=== PATIENT | male | born 1975 | race Caucasian/White ===

== ENCOUNTER 2022-04-23 14:13 | Emergency (ER) | payer OTHER ==
[2022-04-23] MEDS ORDERED: CLEOCIN 150 MG CAPSULE PO ONE (15:02)
[2022-04-23] MEDS ORDERED: CLEOCIN 150 MG CAPSULE ONE (15:06)
--- NOTE | 2022-04-23 15:09 | ERPHSYRPT ---
- History of Present Illness Time Seen by Provider: 04/23/22 14:15 Source: patient Exam Limitations: no limitations Patient Subjective Stated Complaint: Pt woke up on with his right eye swollen shut and the side of his face was swollen, his upper eye lid appears to have a bite on it and is swollen, states that he got a lot of puss out of it yesterday when he got out of the shower Triage Nursing Assessment: Pt brought to the ER by his , tachycardic, rates pain as 2/10, right eye lid swollen and red, no other problems at this time Physician History: 46 years old male up-to-date with immunizations presented in the ER with chief complaint of right upper lid swelling upon waking up from 5 days ago with right eyes swollen shut, has been taking [id number] pain medication and leftover amoxicillin along with warm compresses and it started to improve. Yesterday while taking shower reports there was discharge of green pus. Swelling is still there and no more draining currently. Denies any difficulty movements of eyeball. No redness of eyeball itself without any photophobia or visual disturbance. Patient wants antibiotics. Timing/Duration: day(s) (5), constant, sudden, improved Location: right eye Severity: moderate Apparent Injury: no Associated Symptoms: pain, burning, eyelid swelling, No decreased vision Visual Assistive Devices: Glasses Allergies/Adverse Reactions: cyclobenzaprine HCl [From Flexeril] Allergy (Verified 04/23/22 14:55) naproxen Allergy (Verified 04/23/22 14:55) Home Medications: modafiniL [Provigil] 200 mg PO DAILY 04/23/22 [History] Hx Tetanus, Diphtheria Vaccination/Date Given: Yes (up to date) Hx Influenza Vaccination/Date Given: No Hx Pneumococcal Vaccination/Date Given: No Travel Risk - International Travel Have you traveled outside of the country in past 3 weeks: No - Coronavirus Screening Are you exhibiting any of the following symptoms?: No Close contact with a COVID-19 positive Pt in past 14-21 Days: No - Vaccine Status Have you recieved a Covid-19 vaccination: No - Review of Systems Constitutional: No Symptoms Eyes: Other (Leg swelling) Ears, Nose, & Throat: No Symptoms Respiratory: No Symptoms Cardiac: No Symptoms Abdominal/Gastrointestinal: No Symptoms Musculoskeletal: No Symptoms Skin: Induration Neurological: No Symptoms Endocrine: No Symptoms Hematologic/Lymphatic: No Symptoms - Past Medical History Pertinent Past Medical History: Yes Neurological History: Peripheral Neuropathy Other Medical History: . - Past Surgical History Past Surgical History: Yes Other Surgical History: carpal tunnel surgery - Social History Smoking Status: Current every day smoker How long have you smoked: 20 Exposure to second hand smoke: Yes Drug Use: none Patient Lives Alone: No - Nursing Vital Signs Nursing Vital Signs: Initial Vital Signs Temperature 97.6 F 04/23/22 14:47 Pulse Rate 101 H 04/23/22 14:47 Blood Pressure 133/92 04/23/22 14:47 O2 Sat by Pulse Oximetry 97 04/23/22 14:47 Pain Scale Pain Intensity 2 - Physical Exam General Appearance: no apparent distress Vision Acuity Degree Evaluation Phase: Corrected Vision Acuity Right Eye: 20/30 Vision Acuity Left Eye: 20/20 Eye Exam: right eye: eyelid inflammation (1.5 x 1.5 cm swelling upper lid, firm consistency, warm with intact range of motion of eyeball), left eye: normal in spection, bilateral eye: PERRL, EOMI Ears, Nose, Throat Exam: normal ENT inspection, TMs normal, pharynx normal Neck Exam: normal inspection, supple, full range of motion Respiratory Exam: normal breath sounds, chest tenderness Cardiovascular Exam: regular rate/rhythm, normal heart sounds Neurologic: alert, oriented x 3, chemical dependency nurse II-XII nml as tested Skin Exam: normal color SpO2 Interpretation: normal SpO2: 97 O2 Delivery: Room Air - Progress Progress: unchanged Progress Note: 04/23/22 15:08 I have offered him needle aspiration after local anesthesia but he totally refused and wants nothing but antibiotic prescription. This could be insect bite versus external stye. Started on clindamycin, recommended continue with Tylenol ibuprofen. Patient has no restricted range of motion of eyeball or any acute pathology in the eyeball itself. Recommended outpatient ophthalmology/primary care follow-up. Discussed signs symptoms of worsening needing return to ER which he seems understanding. Counseled pt/family regarding: diagnosis, need for follow-up - Departure Departure Disposition: Home Clinical Impression: Eyelid cellulitis Condition: Stable Critical Care Time: No Referrals: EL DHILLON NP [Primary Care Provider] - Follow up/PCP as directed (1-2 days for reevaluation) SHIVANI BARRIOS MD [CONSULTING PHYSICIAN] - Follow up/PCP as directed (Call tomorrow for appointment for reevaluation) Instructions: Trevon (SUSANA), Skin Abscess Additional Instructions: Apply warm compresses. Take Tylenol/ibuprofen as needed for pain. Follow-up with primary care/ophthalmology for reevaluation. Return to ER for worsening swelling, visual disturbance, difficulty movements of eyeball itself, fever chills etc. Prescriptions: Ibuprofen 600 mg PO Q6HPRN PRN 10 Days #20 tablet PRN Reason: Pain clindamycin HCL [Clindamycin HCl] 300 mg PO QID 7 Days #28 cap
[2022-04-23 15:36] VITALS: BP 132/95; PULSE 84; O2SAT 96
== END 2022-04-23 15:36 | disposition home or self-care (01) ==
LOC: ED 14:13
DX: H00.031 Abscess of right upper eyelid (principal); Z72.0 Tobacco use; Z28.310 Unvaccinated for COVID-19
CPT/HCPCS: 99281; A9270-GY

== ENCOUNTER 2024-06-12 17:19 | Observation (INO) | payer OTHER ==
--- NOTE | 2024-06-12 17:21 | ERPHSYRPT ---
- History of Present Illness Time Seen by Provider: 06/12/24 17:21 Historian: patient, family Exam Limitations: no limitations Physician History: This is a very active 48-year-old white male patient of nurse jason Valencia who has noticed generalized abdominal pain and distention over the last 2 months. Patient did not seek any evaluation until yesterday when he was seen at [facility]. A CT scan of the abdomen pelvis was performed. He does not have her know the results of that study. He also saw his primary care provider, nurse jason Valencia today. She sent him over to the emergency department for further evaluation management. Associated symptoms include abdominal pain, distention, diarrhea (black) and vomiting (black). He has never had an abdominal surgery in the past. He does state he has had a colonoscopy in the distant past. He has a history of peripheral neuropathy. He has no bleeding or clotting disorders. He does have a history of a small bowel obstruction in the past that was treated nonoperatively. Timing/Duration: worse (Symptoms worsening), other (Abdominal pain, generalized for 2 months) Activities at Onset: none Quality: pressure, tightness Abdominal Pain Onset Location: generalized abdomen Pain Radiation: no radiation Severity of Pain-Max: moderate Severity of Pain-Current: moderate Associated Symptoms: loss of appetite, vomiting, other (Abdominal distention), No chest pain, No fever/chills, No shortness of breath Previous symptoms: no prior history, no recent treatment Allergies/Adverse Reactions: cyclobenzaprine HCl [From Flexeril] Allergy (Verified 06/12/24 17:44) naproxen Allergy (Verified 06/12/24 17:44) Home Medications: modafiniL [Provigil] 200 mg PO DAILY 04/23/22 [History] Hx Tetanus, Diphtheria Vaccination/Date Given: Yes (up to date) Hx Influenza Vaccination/Date Given: No Hx Pneumococcal Vaccination/Date Given: No Travel Risk - International Travel Have you traveled outside of the country in past 3 weeks: No - Emerging Infectious Disease Are you exhibiting symptoms associated with any current EIDs: No - Review of Systems Constitutional: No Symptoms Eyes: No Symptoms Ears, Nose, & Throat: No Symptoms Respiratory: No Symptoms Cardiac: No Symptoms Abdominal/Gastrointestinal: Abdominal Pain (And distention), Nausea, Vomiting, Diarrhea, Appetite Changes Genitourinary Symptoms: No Symptoms Musculoskeletal: No Symptoms Skin: No Symptoms Neurological: No Symptoms Psychological: No Symptoms Endocrine: No Symptoms Hematologic/Lymphatic: No Symptoms Immunological/Allergic: No Symptoms All Other Systems: Reviewed and Negative - Past Medical History Pertinent Past Medical History: Yes Neurological History: Peripheral Neuropathy Other Medical History: . - Past Surgical History Past Surgical History: Yes Other Surgical History: carpal tunnel surgery - Social History Smoking Status: Current every day smoker How long have you smoked: 20 Exposure to second hand smoke: Yes Drug Use: none Patient Lives Alone: No - Nursing Vital Signs Nursing Vital Signs: Initial Vital Signs Blood Pressure 130/88 06/12/24 17:30 O2 Sat by Pulse Oximetry 95 06/12/24 17:30 Pain Scale Pain Intensity 4 - Physical Exam General Appearance: no apparent distress, alert, anxiety, thin Eye Exam: PERRL/EOMI, eyes nml inspection Ears, Nose, Throat Exam: normal ENT inspection, moist mucous membranes Neck Exam: normal inspection, non-tender, supple, full range of motion Respiratory Exam: normal breath sounds, lungs clear, airway intact, No chest tenderness, No respiratory distress Cardiovascular Exam: regular rate/rhythm, normal heart sounds, normal peripheral pulses Gastrointestinal/Abdomen Exam: soft, normal bowel sounds, tenderness (Mild diff use with palpation), distention (Diffuse), guarding (Mild diffuse with palpation), No rebound Rectal Exam: not done Back Exam: normal inspection, normal range of motion, No CVA tenderness, No vertebral tenderness Extremity Exam: normal inspection, normal range of motion, pelvis stable Neurologic Exam: alert, oriented x 3, cooperative, in store marketing associate II-XII nml as tested, normal mood/affect, nml cerebellar function, nml station & gait, sensation nml Skin Exam: normal color, warm, dry Lymphatic Exam: No adenopathy SpO2 Interpretation: normal O2 Delivery: Room Air - Course Nursing assessment & vital signs reviewed: Yes Ordered Tests: Active Orders 24 hr Category Date Time Status IV Insertion STAT Care 06/12/24 17:52 Active NGT [Gastric Tube Insertion] STAT Care 06/12/24 20:51 Active ABDOMEN AND PELVIS W/0 CONTRAS [CT] Stat Exams 06/12/24 17:53 Completed AMYLASE Stat Lab 06/12/24 18:20 Completed CBC W DIFF Stat Lab 06/12/24 18:20 Completed CMP Stat Lab 06/12/24 18:20 Completed LIPASE Stat Lab 06/12/24 18:20 Completed Lactic Acid Stat Lab 06/12/24 17:58 Completed UA W/RFX UR CULTURE Stat Lab 06/12/24 18:00 Completed Medication Summary Discontinued Medications Generic Name Dose Route Start Last Admin Trade Name Freq PRN Reason Stop Dose Admin Hydromorphone HCl 1 mg 06/12/24 18:07 06/12/24 18:17 Hydromorphone 1 Mg/1ml Inj IV 06/12/24 18:08 1 mg STAT ONE Administration Hydromorphone HCl Confirm 06/12/24 18:14 Hydromorphone 1 Mg/1ml Inj Administered 06/12/24 18:15 Dose 1 mg .ROUTE .STK-MED ONE Sodium Chloride 500 mls @ 500 mls/hr 06/12/24 18:07 06/12/24 18:17 Sodium Chloride 0.9% 500 Ml IV 06/12/24 19:06 500 mls/hr .Q1H ONE Administration Sodium Chloride Confirm 06/12/24 18:14 Sodium Chloride 0.9% 500 Ml Administered 06/12/24 18:15 Dose 500 mls @ ud IV .STK-MED ONE Ondansetron HCl 4 mg 06/12/24 18:07 06/12/24 18:17 Ondansetron Hcl 4 Mg/2 Ml Vial IV 06/12/24 18:08 4 mg STAT ONE Administration Ondansetron HCl Confirm 06/12/24 18:14 Ondansetron Hcl 4 Mg/2 Ml Vial Administered 06/12/24 18:15 Dose 4 mg .ROUTE .STK-MED ONE Lab/Rad Data: Laboratory Result Diagrams 06/12/24 18:20 06/12/24 18:20 Laboratory Results 06/12/24 06/12/24 06/12/24 Range/Units 18:20 18:20 18:00 WBC 6.2 (4.23-9.07) x10^3/uL RBC 4.53 L (4.63-6.08) x10^6/uL Hgb 13.1 L (13.7-17.5) g/dL Hct 38.9 L (40.1-51.0) % MCV 85.9 (79.0-92.2) fL MCH 28.9 (25.7-32.2) pg MCHC 33.7 (32.3-36.5) g/dL RDW 13.6 (11.6-14.4) % Plt Count 253 (163-337) x10^3/uL MPV 10.4 (9.4-12.4) fL Gran % 67.0 (34.0-67.9) % Immature Gran % (Auto) 0.3 (0.001-0.429) % Nucleat RBC Rel Count 0.0 (0.00-0.2) % Eos # (Auto) 0.12 (0.04-0.54) x10^3/uL Immature Gran # (Auto) 0.02 (0.001-0.031) x10^3u/L Absolute Lymphs (auto) 1.47 (1.32-3.57) x10^3/uL Absolute Monos (auto) 0.41 (0.30-0.82) x10^3/uL Absolute Nucleated RBC 0.00 (0.00-0.012) x10^3u/L Lymphocytes % 23.7 (21.8-53.1) % Monocytes % 6.6 (5.3-12.2) % Eosinophils % 1.9 (0.8-7.0) % Basophils % 0.5 (0.2-1.2) % Absolute Granulocytes 4.15 (1.78-5.38) x10^3/uL Basophils # 0.03 (0.01-0.08) x10^3/uL Sodium 139 (135-145) mmol/L Potassium 4.2 (3.5-5.1) mmol/L Chloride 108 H (98-107) mmol/L Carbon Dioxide 25 (22-30) mmol/L Anion Gap 10.9 (5-15) MEQ/L BUN 22 H (9-20) mg/dL Creatinine 1.15 (0.66-1.25) mg/dL Estimated GFR 79.5 ML/MIN Glucose 127 H (74-106) mg/dL Lactic Acid (0.4-2.0) Calcium 9.2 (8.4-10.2) mg/dL Total Bilirubin 0.20 (0.2-1.3) mg/dL AST 27 (17-59) U/L ALT 34 (0-50) U/L Alkaline Phosphatase 51 (38-126) U/L Serum Total Protein 6.6 (6.3-8.2) g/dL Albumin 3.9 (3.5-5.0) g/dL Amylase 71 (30-110) U/L Lipase 70 (23-300) U/L Urine Color Yellow (Yellow) Urine Appearance Clear (Clear) Urine pH 5.5 (4.6-8.0) Ur Specific [place] 1.025 (1.005-1.030) Urine Protein Negative (Negative) Urine Glucose (UA) Negative (Negative) mg/dL Urine Ketones Negative (Negative) Urine Blood Negative (Negative) Urine Nitrite Negative (Negative) Urine Bilirubin Negative (Negative) Urine Urobilinogen 0.2 (0.2) mg/dL Ur Leukocyte Esterase Negative (Negative) U Hyaline Cast (Auto) NONE SEEN (0-2) /LPF Urine Microscopic RBC 0-2 (0-5) /HPF Urine Microscopic WBC 0-2 (0-5) /HPF Ur Epithelial Cells None Seen (None Seen) /HPF Urine Bacteria None Seen (None Seen) /HPF Urine Culture Reflexed NO (NO) 06/12/24 Range/Units 17:58 WBC (4.23-9.07) x10^3/uL RBC (4.63-6.08) x10^6/uL Hgb (13.7-17.5) g/dL Hct (40.1-51.0) % MCV (79.0-92.2) fL MCH (25.7-32.2) pg MCHC (32.3-36.5) g/dL RDW (11.6-14.4) % Plt Count (163-337) x10^3/uL MPV (9.4-12.4) fL Gran % (34.0-67.9) % Immature Gran % (Auto) (0.001-0.429) % Nucleat RBC Rel Count (0.00-0.2) % Eos # (Auto) (0.04-0.54) x10^3/uL Immature Gran # (Auto) (0.001-0.031) x10^3u/L Absolute Lymphs (auto) (1.32-3.57) x10^3/uL Absolute Monos (auto) (0.30-0.82) x10^3/uL Absolute Nucleated RBC (0.00-0.012) x10^3u/L Lymphocytes % (21.8-53.1) % Monocytes % (5.3-12.2) % Eosinophils % (0.8-7.0) % Basophils % (0.2-1.2) % Absolute Granulocytes (1.78-5.38) x10^3/uL Basophils # (0.01-0.08) x10^3/uL Sodium (135-145) mmol/L Potassium (3.5-5.1) mmol/L Chloride (98-107) mmol/L Carbon Dioxide (22-30) mmol/L Anion Gap (5-15) MEQ/L BUN (9-20) mg/dL Creatinine (0.66-1.25) mg/dL Estimated GFR ML/MIN Glucose (74-106) mg/dL Lactic Acid 1.2 (0.4-2.0) Calcium (8.4-10.2) mg/dL Total Bilirubin (0.2-1.3) mg/dL AST (17-59) U/L ALT (0-50) U/L Alkaline Phosphatase (38-126) U/L Serum Total Protein (6.3-8.2) g/dL Albumin (3.5-5.0) g/dL Amylase (30-110) U/L Lipase (23-300) U/L Urine Color (Yellow) Urine Appearance (Clear) Urine pH (4.6-8.0) Ur Specific [place] (1.005-1.030) Urine Protein (Negative) Urine Glucose (UA) (Negative) mg/dL Urine Ketones (Negative) Urine Blood (Negative) Urine Nitrite (Negative) Urine Bilirubin (Negative) Urine Urobilinogen (0.2) mg/dL Ur Leukocyte Esterase (Negative) U Hyaline Cast (Auto) (0-2) /LPF Urine Microscopic RBC (0-5) /HPF Urine Microscopic WBC (0-5) /HPF Ur Epithelial Cells (None Seen) /HPF Urine Bacteria (None Seen) /HPF Urine Culture Reflexed (NO) - Progress Progress Note: 06/12/24 18:15 My medical decision making and the assignment of moderate complexity to this patient's medical issue today is based on review of the patient's past medical history, review of the patient's medication list, reviewed patient drug allergy list, history present illness and physical findings on examination. The workup in this patient includes placement of intravenous line, infusion normal saline solution, infusion of Zofran and Dilaudid intravenously, lactic acid, amylase, lipase, CBC, CMP, urinalysis, CT scan of the abdomen pelvis with contrast. Differential diagnosis includes but is not limited to bowel obstruction, intra- abdominal ascites or other acute process 06/12/24 19:46 I interpreted the patient's laboratory data results. Based on the laboratory d kirk results, the patient has no acute, emergent medical issue. The CT scan of the abdomen pelvis without contrast was interpreted by the radiologist and I reviewed the impression. The impression states markedly distended food/fluid filled stomach presumed from recent meal. Gastric outlet obstruction versus gastroparesis. Noncontrasted stomach and bowel loops appear nonobstructed. Normal appendix. No free air 06/12/24 20:39 I spoke with general surgeon on-call Dr. Meier. I reviewed the patient history, chief complaint and findings of the patient's workup. He we will consult the patient tomorrow morning, 06/13/2024. We will place a nasogastric tube in him and place it to low intermittent wall suction. I will call the telehospitalist for placement in observation. 06/12/24 20:[address] Waters, our telehospitalist on-call at this time. I reviewed the patient history, presenting complaint, findings on the patient's workup. He is also aware that Dr. Meier , the general surgeon on-call, will consult this patient tomorrow morning. We will place an NG tube in the emergency department and placed to low intermittent wall suction, provide the patient with low rate intravenous fluid, antiemetics as well as Protonix intravenous daily and obtain the general surgical consultation Counseled pt/family regarding: lab results, diagnosis, rad results Medical Desision Making - Diagnostic Testing Diagnostic test were ordered, analyzed, and reviewed by me: Yes Radiological Interpretation: Reviewed by me, Teleradiologist Report - Risk of complications The pt has a high risk of morbidity or mortality based on: Decision regarding hospitilization or escalation of hosp level of care - Departure Departure Disposition: Observation Clinical Impression: Vomiting, Abdominal pain, Gastric outlet obstruction, Gastroparesis Condition: Stable Critical Care Time: No Referrals: EL VALENCIA, SYSTEMS SUPPORT ENGINEER [Primary Care Provider] - Follow up/PCP as directed
[2024-06-12] MEDS ORDERED: Hydromorphone 1 mg/ml Injection ONE (18:14)
[2024-06-12] MEDS ORDERED: Zofran 4 MG/2 ML VIAL ONE (18:14)
[2024-06-12] MEDS ORDERED: Sodium Chloride 0.9% 500 ML 500 ML IV ONE (18:14)
[2024-06-12] MEDS: Sodium Chloride 0.9% 500 ML 500 ML IV ONE (18:17)
[2024-06-12] MEDS: Hydromorphone 1 mg/ml Injection IV ONE (18:17)
[2024-06-12] MEDS: Zofran 4 MG/2 ML VIAL IV ONE (18:17)
[2024-06-12 18:24] LABS: Absolute Neutrophil Ct (ANC) 4.15 x10^3/uL (1.78-5.38); BASOPHIL % 0.5 % (0.2-1.2); Basophil (Absolute #) 0.03 x10^3/uL (0.01-0.08); Eosinophil % 1.9 % (0.8-7.0); Eosinophil (Absolute #) 0.12 x10^3/uL (0.04-0.54); Hematocrit 38.9 % (40.1-51.0); Hemoglobin 13.1 g/dL (13.7-17.5); IMMATURE GRAN # 0.02 x10^3u/L (0.001-0.031); IMMATURE GRAN % 0.3 % (0.001-0.429); Lymphocyte (Absolute #) 1.47 x10^3/uL (1.32-3.57); Lymphocytes % 23.7 % (21.8-53.1); Mean Cell Volume 85.9 fL (79.0-92.2); Mean Corpuscular Hemoglobin 28.9 pg (25.7-32.2); Mean Corpuscular Hgb Concent. 33.7 g/dL (32.3-36.5); Mean Platelet Volume 10.4 fL (9.4-12.4); Monocyte (Absolute #) 0.41 x10^3/uL (0.30-0.82); Monocytes % 6.6 % (5.3-12.2); Platelet Count 253 x10^3/uL (163-337); Red Blood Count 4.53 x10^6/uL (4.63-6.08); Red Cell Distribution Width 13.6 % (11.6-14.4); White Blood Count 6.2 x10^3/uL (4.23-9.07)
[2024-06-12 18:42] LABS: ALBUMIN 3.9 g/dL (3.5-5.0); ANION GAP 10.9 MEQ/L (5-15); BILIRUBIN,TOTAL 0.2 mg/dL (0.2-1.3); Calcium 9.2 mg/dL (8.4-10.2); Creatinine 1 1.15 mg/dL (0.66-1.25); EST GLOMERULAR FILTRATION RATE 79.5 ML/MIN; Potassium 4.2 mmol/L (3.5-5.1); Total Protein 6.6 g/dL (6.3-8.2)
[2024-06-12 18:50] LABS: Bacteria None Seen /HPF (None Seen); Bilirubin Negative (Negative); Blood Negative (Negative); Epithelial Cells None Seen /HPF (None Seen); Glucose, Urine Negative (Negative); Hyaline Casts NONE SEEN /LPF (0-2); Ketones Negative (Negative); Leukocyte Esterase Negative (Negative); Nitrite Negative (Negative); Ph 5.5 (4.6-8.0); Protein,Urine Dip Negative (Negative); RBC 0-2 /HPF (0-5); Specific Gravity 1.025 (1.005-1.030); Urobilinogen 0.2 mg/dL (0.2); WBC 0-2 /HPF (0-5)
[2024-06-12 18:51] LABS: Appearance Clear (Clear)
--- NOTE | 2024-06-12 19:30 | XRAY ---
Indication: Abdominal pain and distention. Multiple contiguous axial images obtained through the abdomen and pelvis without contrast. Comparison: June 25, 2023 Lung bases demonstrates tiny left lower lobe calcified granulomas. No infiltrate or effusion. Heart not enlarged. Stomach markedly distended with food/fluid presumed from recent meal. Gastric outlet obstruction versus gastroparesis not completely excluded. Noncontrasted stomach and bowel loops appear nonobstructed with normal appendix. No free fluid/air. Remaining liver, gallbladder, pancreas, spleen, adrenal glands, kidneys, ureters, bladder, and aorta are unremarkable for noncontrast exam. Osseous structures intact. Impression: Markedly food/fluid distended stomach presumed from recent meal. Outlet obstruction versus gastroparesis not completely excluded. Remaining CT abdomen/pelvis without contrast exam is again normal.
[2024-06-12] MEDS ORDERED: Zofran 4 MG/2 ML VIAL IV PRN (22:58)
--- NOTE | 2024-06-13 00:19 | PCM.HP ---
History of Present Illness - Chief Complaint Chief Complaint: Gastric outlet obstruction versus gastroparesis Date: 06/13/24 History of Present Illness: Mr. Carr is a 48 year-old gentleman with a prior history of gastroparesis vs. gastric outlet syndrome who presents with abdominal distension and pain with intermittent pain and diarrhea. He admits to two months of symptoms, but due to worsening distension over the past several days, he decided to pursue further medical attention. A similar episode occurred last year, and he underwent a colonscopy - he dooes not know the results of that colonoscopy, and he was not set up for any follow-up care or work-up. His last bowel movement was this morning (diarrhea), and he continues to pass gas. Upon arrival to [place], laboratory data was remarkable for anemia and a slightly elevated Cr above his baseline, and imaging was concerning for gastroparesis vs. gastric outlet obstruction. On my examination he is resting comfortably with an NGT to LIWS, and he denies any current fevers, chills, nausea, vomiting, diarrhea, syncope, presyncope, visual changes, orthopnea, PND, odynophagia, dysphagia, chest pain, shortness of breath, dysuria, hematuria, melena, hematochezia, or neurological changes. All other systems were reviewed and were negative. - Review of Systems Constitutional: Other ( PER HPI) Medications & Allergies Home Medications: Home Medication List modafiniL [Provigil] 200 mg PO DAILY 04/23/22 [History Confirmed 06/12/24] Allergies/Adverse Reactions: Allergies Allergy/AdvReac Type Severity Reaction Status Date / Time cyclobenzaprine HCl Allergy Verified 06/12/24 17:44 [From Flexeril] naproxen Allergy Verified 06/12/24 17:44 - Past Medical History Past Medical History: Yes Neurological History: Peripheral Neuropathy ENT History: No Pertinent History Cardiac History: Coronary Artery Disease Respiratory History: No Pertinent History Endocrine Medical History: No Pertinent History Musculoskelatal History: No Pertinent History GI Medical History: No Pertinent History History: No Pertinent History Pyscho-Social History: No Pertinent History Male Reproductive Disorders: No Pertinent History Comment: . - Past Surgical History Past Surgical History: Yes Other Surgical History: carpal tunnel surgery Significant Family History: no pertinent family hx - Social History Smoking Status: Current every day smoker How long have you smoked: 20 Exposure to second hand smoke: Yes Alcohol: Occasionally Drug Use: none - Social Determinants of Health Will the patient participate in the screening: Yes Do you worry about a steady place to live?: No Do you have any problems with any of the following?: No known problems In the past 12 months,have you had to go without utilities?: No Have you or anyone in your house had to go without enough: No Transportation Issues: No Has anyone in your support network made you feel unsafe?: No Does the patient want assistance with any of the above?: No - Physical Exam Vital Signs: Vital Signs - 24 hr Temp Pulse Resp BP BP Pulse Ox 06/12/24 23:18 98.9 F 70 18 128/86 96 06/12/24 22:00 74 16 100/69 96 06/12/24 21:30 73 16 111/71 96 06/12/24 21:00 125/85 94 L 06/12/24 20:30 124/78 94 L 06/12/24 20:00 78 17 97/58 94 L 06/12/24 19:00 117/67 94 L 06/12/24 18:59 96 06/12/24 18:50 95 06/12/24 18:40 96 06/12/24 18:33 96 06/12/24 18:00 88 117/84 96 06/12/24 17:32 99.2 F 90 130/88 96 06/12/24 17:30 130/88 95 General Appearance: no apparent distress Neurologic Exam: alert, oriented x 3, cooperative Eye Exam: PERRL/EOMI, eyes nml inspection Ears, Nose, Throat Exam: normal ENT inspection Neck Exam: normal inspection, non-tender, supple Respiratory Exam: normal breath sounds Cardiovascular Exam: regular rate/rhythm, normal heart sounds Gastrointestinal/Abdomen Exam: tenderness, distention Rectal Exam: deferred Back Exam: normal inspection Extremity Exam: normal inspection Skin Exam: normal color, warm, dry Results - Labs Lab/Micro Results: Lab Results-Last 24 Hours 06/12/24 06/12/24 06/12/24 Range/Units 17:58 18:00 18:20 WBC 6.2 (4.23-9.07) x10^3/uL RBC 4.53 L (4.63-6.08) x10^6/uL Hgb 13.1 L (13.7-17.5) g/dL Hct 38.9 L (40.1-51.0) % MCV 85.9 (79.0-92.2) fL MCH 28.9 (25.7-32.2) pg MCHC 33.7 (32.3-36.5) g/dL RDW 13.6 (11.6-14.4) % Plt Count 253 (163-337) x10^3/uL MPV 10.4 (9.4-12.4) fL Gran % 67.0 (34.0-67.9) % Immature Gran % (Auto) 0.3 (0.001-0.429) % Nucleat RBC Rel Count 0.0 (0.00-0.2) % Eos # (Auto) 0.12 (0.04-0.54) x10^3/uL Immature Gran # (Auto) 0.02 (0.001-0.031) x10^3u/L Absolute Lymphs (auto) 1.47 (1.32-3.57) x10^3/uL Absolute Monos (auto) 0.41 (0.30-0.82) x10^3/uL Absolute Nucleated RBC 0.00 (0.00-0.012) x10^3u/L Lymphocytes % 23.7 (21.8-53.1) % Monocytes % 6.6 (5.3-12.2) % Eosinophils % 1.9 (0.8-7.0) % Basophils % 0.5 (0.2-1.2) % Absolute Granulocytes 4.15 (1.78-5.38) x10^3/uL Basophils # 0.03 (0.01-0.08) x10^3/uL Sodium (135-145) mmol/L Potassium (3.5-5.1) mmol/L Chloride (98-107) mmol/L Carbon Dioxide (22-30) mmol/L Anion Gap (5-15) MEQ/L BUN (9-20) mg/dL Creatinine (0.66-1.25) mg/dL Estimated GFR ML/MIN Glucose (74-106) mg/dL Lactic Acid 1.2 (0.4-2.0) Calcium (8.4-10.2) mg/dL Total Bilirubin (0.2-1.3) mg/dL AST (17-59) U/L ALT (0-50) U/L Alkaline Phosphatase (38-126) U/L Serum Total Protein (6.3-8.2) g/dL Albumin (3.5-5.0) g/dL Amylase (30-110) U/L Lipase (23-300) U/L Urine Color Yellow (Yellow) Urine Appearance Clear (Clear) Urine pH 5.5 (4.6-8.0) Ur Specific Leslie 1.025 (1.005-1.030) Urine Protein Negative (Negative) Urine Glucose (UA) Negative (Negative) mg/dL Urine Ketones Negative (Negative) Urine Blood Negative (Negative) Urine Nitrite Negative (Negative) Urine Bilirubin Negative (Negative) Urine Urobilinogen 0.2 (0.2) mg/dL Ur Leukocyte Esterase Negative (Negative) U Hyaline Cast (Auto) NONE SEEN (0-2) /LPF Urine Microscopic RBC 0-2 (0-5) /HPF Urine Microscopic WBC 0-2 (0-5) /HPF Ur Epithelial Cells None Seen (None Seen) /HPF Urine Bacteria None Seen (None Seen) /HPF Urine Culture Reflexed NO (NO) 06/12/24 Range/Units 18:20 WBC (4.23-9.07) x10^3/uL RBC (4.63-6.08) x10^6/uL Hgb (13.7-17.5) g/dL Hct (40.1-51.0) % MCV (79.0-92.2) fL MCH (25.7-32.2) pg MCHC (32.3-36.5) g/dL RDW (11.6-14.4) % Plt Count (163-337) x10^3/uL MPV (9.4-12.4) fL Gran % (34.0-67.9) % Immature Gran % (Auto) (0.001-0.429) % Nucleat RBC Rel Count (0.00-0.2) % Eos # (Auto) (0.04-0.54) x10^3/uL Immature Gran # (Auto) (0.001-0.031) x10^3u/L Absolute Lymphs (auto) (1.32-3.57) x10^3/uL Absolute Monos (auto) (0.30-0.82) x10^3/uL Absolute Nucleated RBC (0.00-0.012) x10^3u/L Lymphocytes % (21.8-53.1) % Monocytes % (5.3-12.2) % Eosinophils % (0.8-7.0) % Basophils % (0.2-1.2) % Absolute Granulocytes (1.78-5.38) x10^3/uL Basophils # (0.01-0.08) x10^3/uL Sodium 139 (135-145) mmol/L Potassium 4.2 (3.5-5.1) mmol/L Chloride 108 H (98-107) mmol/L Carbon Dioxide 25 (22-30) mmol/L Anion Gap 10.9 (5-15) MEQ/L BUN 22 H (9-20) mg/dL Creatinine 1.15 (0.66-1.25) mg/dL Estimated GFR 79.5 ML/MIN Glucose 127 H (74-106) mg/dL Lactic Acid (0.4-2.0) Calcium 9.2 (8.4-10.2) mg/dL Total Bilirubin 0.20 (0.2-1.3) mg/dL AST 27 (17-59) U/L ALT 34 (0-50) U/L Alkaline Phosphatase 51 (38-126) U/L Serum Total Protein 6.6 (6.3-8.2) g/dL Albumin 3.9 (3.5-5.0) g/dL Amylase 71 (30-110) U/L Lipase 70 (23-300) U/L Urine Color (Yellow) Urine Appearance (Clear) Urine pH (4.6-8.0) Ur Specific Leslie (1.005-1.030) Urine Protein (Negative) Urine Glucose (UA) (Negative) mg/dL Urine Ketones (Negative) Urine Blood (Negative) Urine Nitrite (Negative) Urine Bilirubin (Negative) Urine Urobilinogen (0.2) mg/dL Ur Leukocyte Esterase (Negative) U Hyaline Cast (Auto) (0-2) /LPF Urine Microscopic RBC (0-5) /HPF Urine Microscopic WBC (0-5) /HPF Ur Epithelial Cells (None Seen) /HPF Urine Bacteria (None Seen) /HPF Urine Culture Reflexed (NO) - Radiology Impressions Radiology Exams & Impressions: Radiology Procedures Category Date Time Status ABDOMEN AND PELVIS W/0 CONTRAS [CT] Stat Exams 06/12/24 17:53 Completed CHEST 1 VIEW (PORTABLE) Stat Exams 06/12/24 21:48 Taken CHEST 1 VIEW (PORTABLE) Stat Exams 06/12/24 22:39 Taken - Other Procedures and Tests Respiratory Therapy 06/12/24 23:40 Smoking Cessation Education ONCE Assessment/Plan (1) Gastric outlet obstruction Current Visit: Yes Status: Acute Assessment & Plan: ASSESSMENT 1. Abdominal Distension 2. Acute Kidney Injury 3. Anemia PLAN 1. [place]ner for gastric outlet obstruction vs. gastroparesis vs. Carlos's Syndrome 2. NGT to LIWS 3. Gentle fluids 4. NPO - Surgery to perform colonoscopy tomorrow 5. He will need proper GI follow-up SCDs/PPI The entirety of this encounter was done via telemedicine with audio and visual. Consent was obtained for a telemedicine encounter. Ren Waters MD Pulmonary and Critical Care Medicine Code(s): K31.1 - ADULT HYPERTROPHIC PYLORIC STENOSIS Telemedicine Encounter - Telemedicine Encounter Telemedicine Encounter: "The entirety of this encounter was performed via Telemedicine" This visit was performed using real-time audio and video connection between my location and thepatients locationwith the assistance of a surrogateat the patients location. Written or verbal consent was obtained from the patient/guardian to perform this visit [facility]. Any patient questions regarding the telemedicine interaction were answered.
[2024-06-13] MEDS: PROTONIX 40 MG IV IV SCH ×2 (00:29→22:10)
[2024-06-13] MEDS: Sodium Chloride 0.9% 1000 ML 1,000 ML IV SCH (00:29)
[2024-06-13] MEDS ORDERED: XYLOCAINE HCl Viscous ONE (04:50)
[2024-06-13] MEDS ORDERED: XYLOCAINE VISCOUS 2% 15 ML CUP ONE (04:57)
[2024-06-13] MEDS: XYLOCAINE VISCOUS 2% 15 ML CUP PO ONE (05:01)
[2024-06-13] MEDS: XYLOCAINE HCl Viscous MM ONE (05:10)
[2024-06-13 06:35] LABS: Absolute Neutrophil Ct (ANC) 5.95 x10^3/uL (1.78-5.38); BASOPHIL % 0.5 % (0.2-1.2); Basophil (Absolute #) 0.04 x10^3/uL (0.01-0.08); Eosinophil % 2.5 % (0.8-7.0); Eosinophil (Absolute #) 0.21 x10^3/uL (0.04-0.54); Hematocrit 39.7 % (40.1-51.0); Hemoglobin 12.8 g/dL (13.7-17.5); IMMATURE GRAN # 0.02 x10^3u/L (0.001-0.031); IMMATURE GRAN % 0.2 % (0.001-0.429); Lymphocyte (Absolute #) 1.77 x10^3/uL (1.32-3.57); Lymphocytes % 20.7 % (21.8-53.1); Mean Cell Volume 86.7 fL (79.0-92.2); Mean Corpuscular Hemoglobin 27.9 pg (25.7-32.2); Mean Corpuscular Hgb Concent. 32.2 g/dL (32.3-36.5); Mean Platelet Volume 11.2 fL (9.4-12.4); Monocyte (Absolute #) 0.58 x10^3/uL (0.30-0.82); Monocytes % 6.8 % (5.3-12.2); Neutrophil % 69.3 % (34.0-67.9); Platelet Count 252 x10^3/uL (163-337); Red Blood Count 4.58 x10^6/uL (4.63-6.08); Red Cell Distribution Width 13.8 % (11.6-14.4); White Blood Count 8.6 x10^3/uL (4.23-9.07)
[2024-06-13 06:54] LABS: ALBUMIN 3.7 g/dL (3.5-5.0); ANION GAP 12.6 MEQ/L (5-15); BILIRUBIN,TOTAL 0.3 mg/dL (0.2-1.3); Calcium 8.6 mg/dL (8.4-10.2); Creatinine 1 0.95 mg/dL (0.66-1.25); NT PRO BNPII 74.2 pg/mL (<300); Potassium 4.4 mmol/L (3.5-5.1); Total Protein 6.3 g/dL (6.3-8.2)
--- NOTE | 2024-06-13 07:36 | XRAY ---
Indication: NG tube placement. Comparison: None Portable chest demonstrates NG tube in esophagus coiled mid-level with tip directed superiorly projecting over T3. Recommend readjustment. Remaining heart, lungs, and bony thorax normal.
--- NOTE | 2024-06-13 07:36 | XRAY ---
Indication: NG tube readjustment. Comparison: Taken earlier in the day. Portable chest demonstrates NG tube readjustment/straightening with tube traversing chest with tip now in stomach. Remaining heart, lungs, and bony thorax normal.
[2024-06-13] MEDS: Hydromorphone 1 mg/ml Injection IV PRN (08:42)
[2024-06-13] MEDS ORDERED: XYLOCAINE VISCOUS 2% 15 ML CUP PO PRN (13:30)
--- NOTE | 2024-06-13 19:17 | XRAY ---
CLINICAL HISTORY: rule out gastric outlet obstruction COMPARISON: Comparison is made with a previous study dated on 06/12/2024. TECHNIQUE: CT of the abdomen and pelvis was performed, with the following protocol: axial images, and reconstructed coronal and sagittal images without intravenous contrast. 30 cc Gastrografin mixed w/ 30 oz of water via NG tube was given for bowel opacification. One of the following dose reduction techniques was utilized for this exam: Automated exposure control, adjustment of the mA and/or kV according to patient size, and use of iterative reconstruction. CTDI: 6.73mGY, DLP: 391.99mGY*cm. FINDINGS: Abdomen: Stomach and bowels: A nasogastric tube is noted. No gastric distention. No demonstrated fat stranding, focal thickening, or mass lesion at the gastric outlet area in this non-intravenous contrast enhanced study. No morphology of superior mesenteric artery syndrome. The oral contrast reached down to the descending colon with no bowel dilatation. Normal appendix appearance. Liver: Normal in size, shape, and density. No focal lesions, cysts, or masses were identified in this [id number] study. Gallbladder and Biliary System: The gallbladder is normal in size and shape. No wall thickening, pericholecystic fluid, or dense gallstones were identified. Pancreas: Pancreatic head, body, and tail are visualized and appear normal in size and density in this [id number] study. Spleen: Normal in size, shape, and density. No splenic lesions or masses were identified other than a tiny calcified focus (could be a calcified granuloma). Kidneys and Adrenal Glands: Both kidneys are normal in size, shape, and position. Cortical thickness is within normal limits. No renal calculi or hydronephrosis. Adrenal glands are unremarkable. Abdominal Aorta and Vessels: The abdominal aorta and major branches appear roughly unremarkable in this [id number] study. Pelvis: Urinary Bladder: Normal in contour and wall thickness. No intraluminal lesions. Prostate: Normal in size and contour. No masses or abnormal thickening. internal calcification focus is noted. Seminal Vesicles: Normal appearance without abnormal enlargement or mass. Peritoneal and Retroperitoneal Structures: No free fluid or abnormal fluid collections were identified within the abdomen or pelvis. No lymphadenopathy was noted. Bones and Soft Tissues: Pelvic bones and soft tissues are unremarkable. No fractures or abnormal masses were identified. IMPRESSION: 1. No evidence of gastric outlet obstruction or other acute intra-abdominal pathology in this [id number] study. Needs clinical correlation and further evaluation accordingly. 2. No significant interval change from previous study. Electronically Signed by: Homero Richards MD. (06/13/2024 19:12:23 EDT)
[2024-06-13] MEDS ORDERED: PROTONIX 40 MG IV IV SCH (22:00)
[2024-06-14 07:00] LABS: Hematocrit 39.8 % (40.1-51.0); Hemoglobin 12.9 g/dL (13.7-17.5); Mean Cell Volume 87.3 fL (79.0-92.2); Mean Corpuscular Hemoglobin 28.3 pg (25.7-32.2); Mean Corpuscular Hgb Concent. 32.4 g/dL (32.3-36.5); Mean Platelet Volume 10.9 fL (9.4-12.4); Platelet Count 226 x10^3/uL (163-337); Red Blood Count 4.56 x10^6/uL (4.63-6.08); Red Cell Distribution Width 13.3 % (11.6-14.4); White Blood Count 6.1 x10^3/uL (4.23-9.07)
[2024-06-14 07:11] VITALS: O2SAT 91
[2024-06-14 07:18] LABS: ALBUMIN 3.6 g/dL (3.5-5.0); ANION GAP 10.8 MEQ/L (5-15); BILIRUBIN,TOTAL 0.5 mg/dL (0.2-1.3); Calcium 8.5 mg/dL (8.4-10.2); Creatinine 1 0.98 mg/dL (0.66-1.25); EST GLOMERULAR FILTRATION RATE 96.3 ML/MIN; Potassium 4.1 mmol/L (3.5-5.1); Total Protein 6.3 g/dL (6.3-8.2)
[2024-06-14 11:52] VITALS: BP 118/77; PULSE 90; RESP 17; TEMP 97.7
--- NOTE | 2024-06-14 11:54 | PCM.DS ---
Discharge Summary Date of Admission: 06/12/24 22:52 Date of Discharge: 06/14/24 Admitting Physician: YENI CUMMINGS MD Consults: Consults on Case 06/12/24 22:58 Consult Surgery ROUTINE Primary Care Provider: EL DHILLON Allergies Allergies cyclobenzaprine HCl [From Flexeril] Allergy (Verified 06/12/24 17:44) naproxen Allergy (Verified 06/12/24 17:44) Hospital Summary - Hospital Course Hospital Course: Mr. Carr is a 48 year-old gentleman with a prior history of gastroparesis vs. gastric outlet syndrome. He presented on 06/13/24 with abdominal distension and pain with intermittent pain and diarrhea. He admits to two months of symptoms, but due to worsening distension over the past several days, he decided to pursue further medical attention. A similar episode occurred last year, and he underwent a colonscopy - he dooes not know the results of that colonoscopy, and he was not set up for any follow-up care or work-up. His last bowel movement was this morning (diarrhea), and he continues to pass gas. Upon arrival to [place], laboratory data was remarkable for anemia and a slightly elevated Cr above his baseline, and imaging was concerning for gastroparesis vs. gastric outlet obstruction. On admission he was resting comfortably with an NGT to [facility], and he denies any current fevers, chills, nausea, vomiting, diarrhea, syncope, presyncope, visual changes, orthopnea, PND, odynophagia, dysphagia, chest pain, shortness of breath, dysuria, hematuria, melena, hematochezia, or neurological changes. All other systems were reviewed and were negative. Today pt feels better and wants to go home. Clear liquid diet started this morning and NG removed. He denies any further sxs and abd pain resolved. Avanced diet at lunch and able to tolerate can d/c per General surgery. He will need OP f/u with general surgery for EGD and colonoscopy for vomiting dark emesis and dark tarry stools. Occult stool was not obtained during visit as he had no stool s. Hgb stable at 12.9. - Vitals & Intake/Output Vital Signs: Vital Signs Temperature 98.7 F 06/14/24 07:10 Pulse Rate 74 06/14/24 07:10 Respiratory Rate 18 06/14/24 07:10 Blood Pressure 93/64 06/14/24 07:10 O2 Sat by Pulse Oximetry 91 L 06/14/24 07:10 Intake & Output: Intake & Output 06/11/24 06/12/24 06/13/24 06/14/24 11:59 11:59 11:59 11:59 Intake Total 226 2091 Output Total 660 700 Balance -434 1391 Weight 90.9 kg - Lab Result Diagrams: 06/14/24 06:29 06/14/24 06:29 Lab Results-Last 24 Hrs: Lab Results-Last 24 Hours 06/14/24 06/14/24 Range/Units 06:29 06:29 WBC 6.1 (4.23-9.07) x10^3/uL RBC 4.56 L (4.63-6.08) x10^6/uL Hgb 12.9 L (13.7-17.5) g/dL Hct 39.8 L (40.1-51.0) % MCV 87.3 (79.0-92.2) fL MCH 28.3 (25.7-32.2) pg MCHC 32.4 (32.3-36.5) g/dL RDW 13.3 (11.6-14.4) % Plt Count 226 (163-337) x10^3/uL MPV 10.9 (9.4-12.4) fL Sodium 136 (135-145) mmol/L Potassium 4.1 (3.5-5.1) mmol/L Chloride 105 (98-107) mmol/L Carbon Dioxide 24 (22-30) mmol/L Anion Gap 10.8 (5-15) MEQ/L BUN 16 (9-20) mg/dL Creatinine 0.98 (0.66-1.25) mg/dL Estimated GFR 96.3 ML/MIN Glucose 120 H (74-106) mg/dL Calcium 8.5 (8.4-10.2) mg/dL Total Bilirubin 0.50 (0.2-1.3) mg/dL AST 22 (17-59) U/L ALT 22 (0-50) U/L Alkaline Phosphatase 56 (38-126) U/L Serum Total Protein 6.3 (6.3-8.2) g/dL Albumin 3.6 (3.5-5.0) g/dL - Radiology Exams Ordered Rad Exams-Entire Visit: Radiology Procedures Category Date Time Status ABDOMEN AND PELVIS W/0 CONTRAS [CT] Stat Exams 06/12/24 17:53 Completed ABDOMEN AND PELVIS W/0 CONTRAS [CT] Stat Exams 06/13/24 12:58 Completed CHEST 1 VIEW (PORTABLE) Stat Exams 06/12/24 21:48 Completed CHEST 1 VIEW (PORTABLE) Stat Exams 06/12/24 22:39 Completed - Procedures and Test Procedures and Tests throughout Hospitalization: Therapy Orders & Screens 06/12/24 23:40 Smoking Cessation Education ONCE Comment: Diagnosis: Gastric outlet obstruction versus gastroparesis Smoking Status: Current every day smoker How long have you smoked: 20 Have you smoked in the past 12 months: Yes Do you dip or chew tobacco: No Discharge Exam General Appearance: no apparent distress, alert Neurologic Exam: alert, oriented x 3, cooperative, normal mood/affect, nml cerebellar function, sensation nml, No motor deficits Eye Exam: PERRL, EOMI, eyes nml inspection Ears, Nose, Throat Exam: normal ENT inspection, pharynx normal, moist mucous membranes Neck Exam: normal inspection, non-tender, supple, full range of motion Respiratory Exam: normal breath sounds, lungs clear, No respiratory distress Cardiovascular Exam: regular rate/rhythm, normal heart sounds Gastrointestinal/Abdomen Exam: soft, No tenderness, No mass Male Genitalia Exam: deferred Rectal Exam: deferred Back Exam: normal inspection, normal range of motion, No CVA tenderness, No vertebral tenderness Extremity Exam: normal inspection, normal range of motion Skin Exam: normal color, warm, dry Final Diagnosis/Problem List - Final Discharge Diagnosis/Problem (1) CHARLIE (acute kidney injury) Current Visit: Yes Status: Resolved Assessment & Plan: - IVF stopped - CMP reviewed Code(s): N17.9 - ACUTE KIDNEY FAILURE, UNSPECIFIED (2) Complaint of melena Current Visit: Yes Status: Acute Assessment & Plan: - Hgb stable 12.9 - Can f/u OP with General surgery for EGD/ Colonoscopy - Will need to f/u with PCP for referral as we are unable to make any appointments today on Saturday. - Occult stool not obtained this visit as pt had no BM during stay - Protonix BID- continue OP Code(s): K92.1 - MELENA (3) Abdominal pain Current Visit: Yes Status: Resolved Assessment & Plan: - resolved today - CMP reviewed - advance diet as tolerated - Pain meds stopped - Zofran PRN Code(s): R10.9 - UNSPECIFIED ABDOMINAL PAIN (4) Gastric outlet obstruction Current Visit: Yes Status: Resolved Assessment & Plan: - as seen on CT abd - GS consult - Repeat CT Abd negative - NG removed - OK to d/c per GS Code(s): K31.1 - ADULT HYPERTROPHIC PYLORIC STENOSIS (5) Vomiting Current Visit: Yes Status: Resolved Assessment & Plan: - resolved - Zofran PRN Code(s): R11.10 - VOMITING, UNSPECIFIED (6) Obesity (BMI 30.0-34.9) Current Visit: Yes Status: Chronic Assessment & Plan: - advised diet and exercise control Code(s): E66.811 - OBESITY, CLASS 1 - Discharge Discharge Date: 06/14/24 Disposition: Home, Self-Care Condition: Stable Prescriptions: Continue modafiniL [Provigil] 200 mg PO DAILY Instructions: Bloody stools in adults, Abdominal pain Additional Instructions: Follow up with LEIGHTON Loja this week as you need follow up and referral to General surgery for EGD and Colonoscopy Outpatient. Follow up with: EL DHILLON NP [Primary Care Provider] -
--- NOTE | 2024-06-15 08:55 | CONS ---
BRIEF HISTORY: This is a 48-year-old male who reports no significant medical or surgical history who has been having about 1 year of intermittent nausea and vomiting. He does not relate it to certain foods or liquids but it does happen on and off for the past year and nothing has really made it better. He also report having some darker stool for the past year. He is not currently hiccuping. He does fart and have loose stools frequently. He says he is not a diabetic and does not normally have blood sugar issues. He presented for this problem and a CAT scan was done which is concerning for a possible gastric outlet obstruction versus gastroparesis. Surgery was consulted for this reason. PAST MEDICAL HISTORY: Unremarkable. PAST SURGICAL HISTORY: Unremarkable. VITAL SIGNS: Stable. LABORATORY FINDINGS: Unremarkable. RADIOGRAPHIC INTERPRETATION: He has a distended stomach past the pylorus into the first portion of the duodenum and the second portion. Does not appear to be a clearly obstructing mass or lesion and it does not taper off. It seems to just kind of slowly go away. The rest of the abdomen appeared unremarkable on the CAT scan. PHYSICAL EXAMINATION: GENERAL: He is alert and oriented. He is comfortable in the bed. He has an NG in place with nonbilious output, about 400 mL total since placement. ABDOMEN: Soft, nontender. It is mildly distended. ASSESSMENT: This is a 48-year-old male with a distended stomach of unclear etiology. PLAN: I have ordered a CAT scan with oral contrast to rule out a gastric outlet obstruction. If there is no obstruction, his NG can be removed. We can trial Reglan and set him up for EGD within the next few days to weeks. If he does have an obstruction, I will plan for an EGD more emergently on Saturday to evaluate the etiology. For now, keep n.p.o. pending the CAT scan result.
== END 2024-06-14 13:10 | disposition home or self-care (01) ==
LOC: ED 17:19 → MED SURG 22:52
PROVIDERS: ADMIT Internal Medicine Critical Care Medicine; ATTEND Internal Medicine Critical Care Medicine
DX: N17.9 Acute kidney failure, unspecified (principal); K92.1 Melena; R10.9 Unspecified abdominal pain; K31.1 Adult hypertrophic pyloric stenosis; R11.10 Vomiting, unspecified; E66.811 Obesity, class 1; I25.10 Atherosclerotic heart disease of native coronary artery without angina pectoris; F17.200 Nicotine dependence, unspecified, uncomplicated; Z79.899 Other long term (current) drug therapy
CPT/HCPCS: 36415; 71045; 74176; 80053; 81001; 82150; 83605; 83690; 83880; 85025; 85027; 96374; 96375; 99285; G0378; J1170; J2405; Q3014; A9270-GY

== ENCOUNTER 2024-06-30 06:10 | Day surgery (SDC) | payer OTHER ==
[2024-06-30] MEDS: Lactated Ringers 1,000 ML IV SCH (06:26)
[2024-06-30 06:36] VITALS: RESP 16
[2024-06-30 07:02] LABS: Absolute Neutrophil Ct (ANC) 3.36 x10^3/uL (1.78-5.38); BASOPHIL % 0.5 % (0.2-1.2); Basophil (Absolute #) 0.03 x10^3/uL (0.01-0.08); Eosinophil % 3.2 % (0.8-7.0); Eosinophil (Absolute #) 0.18 x10^3/uL (0.04-0.54); Hematocrit 43.8 % (40.1-51.0); Hemoglobin 14.6 g/dL (13.7-17.5); IMMATURE GRAN # 0.02 x10^3u/L (0.001-0.031); IMMATURE GRAN % 0.4 % (0.001-0.429); Lymphocyte (Absolute #) 1.62 x10^3/uL (1.32-3.57); Lymphocytes % 28.8 % (21.8-53.1); Mean Corpuscular Hemoglobin 28.3 pg (25.7-32.2); Mean Corpuscular Hgb Concent. 33.3 g/dL (32.3-36.5); Mean Platelet Volume 10.5 fL (9.4-12.4); Monocyte (Absolute #) 0.42 x10^3/uL (0.30-0.82); Monocytes % 7.5 % (5.3-12.2); Neutrophil % 59.6 % (34.0-67.9); Platelet Count 263 x10^3/uL (163-337); Red Blood Count 5.15 x10^6/uL (4.63-6.08); Red Cell Distribution Width 13.2 % (11.6-14.4); White Blood Count 5.6 x10^3/uL (4.23-9.07)
[2024-06-30 07:10] LABS: ALBUMIN 4.3 g/dL (3.5-5.0); ANION GAP 11.2 MEQ/L (5-15); BILIRUBIN,TOTAL 0.5 mg/dL (0.2-1.3); Calcium 9.1 mg/dL (8.4-10.2); Creatinine 1 1.05 mg/dL (0.66-1.25); EST GLOMERULAR FILTRATION RATE 88.7 ML/MIN; Potassium 3.6 mmol/L (3.5-5.1); Total Protein 7.2 g/dL (6.3-8.2)
[2024-06-30] MEDS ORDERED: Versed 2 MG/2 ML Injection ONE (07:38)
[2024-06-30] MEDS ORDERED: DIPRIVAN 200 MG/20 ML IV ONE ×2 (07:38→07:56)
[2024-06-30 09:11] VITALS: TEMP 97.1
[2024-06-30 09:22] VITALS: BP 116/86; PULSE 70; O2SAT 99
--- NOTE | 2024-07-01 09:14 | OP ---
SURGERY DATE/TIME: 06/30/2024 [id number] PREOPERATIVE DIAGNOSES: 1) Abdominal pain and bloating. 2) Screening colon exam. POSTOPERATIVE DIAGNOSES: 1) Mild gastritis. 2) Normal colon. PROCEDURE: 1) Esophagogastroduodenoscopy with cold forceps biopsy of gastric antrum. 2) Colonoscopy. SURGEON: Garcia Brennan MD ANESTHESIA: Medications given by the anesthesia department. INDICATIONS: The patient is a 48-year-old white male patient who has been having problems over the past year with abdominal pain. His significant other reports that he has been under a lot of stress at work. The patient admits to smoking, but denies any use of aspirin, ibuprofen, Aleve. He does not partake in alcohol nor marijuana. The patient has been recently in the hospital about 2 weeks ago and placed on Protonix and dicyclomine without much relief. The patient is felt to need to have endoscopic evaluation. He was apprised of the risks of the procedure including risk of perforation, phlebitis, untoward reaction to medication, bleeding, and missed lesions. The patient verbalized his understanding and desired to have procedure performed. DESCRIPTION OF PROCEDURE AND FINDINGS: The patient was given medication by the anesthesia department. He had continuous pulse oximetry, ECG monitoring, intermittent blood pressure monitoring and end-tidal CO2 monitoring during the examination. He was placed in lithotomy decubitus position. A bite block was placed. A flexible Olympus gastroscope was used to intubate the oropharynx. A view of the larynx appeared to be normal. The scope was easily introduced in the esophagus which appeared to be normal throughout its length. The stomach was entered where normal gastric rugal folds were seen. These distended nicely with insufflation of air. The scope was passed along the greater curvature of the stomach to the antrum. The pylorus was encountered and intubated. Duodenum was inspected and found to be normal. Scope was withdrawn toward the stomach and retroflexed view of the lesser curvature, fundus, and cardia regions of the stomach appeared to be essentially normal, with no significant hiatal hernia. Biopsies were taken from the gastric antrum to rule out the presence of Helicobacter pylori-type organisms. The scope was removed from the patient. Next, a digital rectal examination was performed and revealed normal anal sphincter tone and no masses, a normal prostate. The flexible Olympus videocolonoscope was used to intubate the rectum. A view of the colon was developed sequentially to the cecum and upon insertion and withdrawal, no mucosal lesions were encountered. The scope was removed from the patient who tolerated the procedure well and was sent back to outpatient recovery in good condition. The prep was noted to be fair.
== END 2024-06-30 09:33 | disposition home or self-care (01) ==
LOC: SDC 06:10
PROVIDERS: ATTEND Family Medicine
DX: Z12.11 Encounter for screening for malignant neoplasm of colon (principal); K29.70 Gastritis, unspecified, without bleeding; R10.9 Unspecified abdominal pain; R14.0 Abdominal distension (gaseous)
CPT/HCPCS: 36415; 80053; 85025; 93005; J2250; J2704

== ENCOUNTER 2024-07-25 12:01 | Emergency (ER) | payer OTHER ==
[2024-07-25 12:14] VITALS: RESP 18; TEMP 98.4
--- NOTE | 2024-07-25 12:31 | ERPHSYRPT ---
- History of Present Illness Time Seen by Provider: 07/25/24 12:27 Historian: patient Patient Subjective Stated Complaint: Pt states "I have had a bowel blockage before and now my belly hurts, I have not eaten much lately, I have vomited and my stomach is really hurting and is bloated." Triage Nursing Assessment: Pt presented alert and oriented X 3, skin pwd. Pt ambulates with an upright steady gait, able to speak in clear full setences. Pt abdomen is soft and tender. Physician History: Patient is 48-year-old male came to the emergency room with complaining of abdominal pain mainly in periumbilical area. Patient has this type of abdominal pain off and on for last 3 to 4 months for which patient has underwent extensive evaluation including colonoscopy endoscopy CAT scan which did not reveal any significant finding on July 10 recently patient underwent upper GI and small bowel follow-through which was unremarkable but patient states that he still have abdominal pain especially around the umbilical area and when it hurts its its really hurt him bad he denies any diarrhea nausea vomiting or blood in the stool. Abdominal pain comes without any warnings. He denies any relationship with the food or drink. Timing/Duration: week(s), intermittent Activities at Onset: none Quality: cramping Abdominal Pain Onset Location: periumbilical Pain Radiation: no radiation Severity of Pain-Max: mild Severity of Pain-Current: moderate Modifying Factors: Improves With: nothing Associated Symptoms: denies symptoms Previous symptoms: same symptoms as today, recently seen, recently treated Body Map: 1 - area of pain Allergies/Adverse Reactions: cyclobenzaprine HCl [From Flexeril] Allergy (Verified 06/30/24 06:27) neuropathy naproxen Allergy (Verified 06/30/24 06:27) neuropathy Home Medications: Pantoprazole 20 mg [Protonix 20MG Tablet] 20 mg PO DAILY 07/25/24 [History] modafiniL [Modafinil] 200 mg PO DAILY 07/25/24 [History] Hx Tetanus, Diphtheria Vaccination/Date Given: Yes Hx Influenza Vaccination/Date Given: No Hx Pneumococcal Vaccination/Date Given: No Travel Risk - International Travel Have you traveled outside of the country in past 3 weeks: No - Emerging Infectious Disease Are you exhibiting symptoms associated with any current EIDs: Yes Symptoms: Abdominal Pain - Review of Systems Constitutional: No Fever, No Chills Eyes: No Symptoms Ears, Nose, & Throat: No Symptoms Respiratory: No Cough, No Dyspnea Cardiac: No Chest Pain, No Edema, No Syncope Abdominal/Gastrointestinal: Abdominal Pain, No Nausea, No Vomiting, No Diarrhea Genitourinary Symptoms: No Dysuria Musculoskeletal: No Back Pain, No Neck Pain Skin: No Rash Neurological: No Dizziness, No Focal Weakness, No Sensory Changes Psychological: No Symptoms Endocrine: No Symptoms All Other Systems: Reviewed and Negative - Past Medical History Pertinent Past Medical History: Yes Neurological History: Peripheral Neuropathy, Seizures ENT History: No Pertinent History Cardiac History: Coronary Artery Disease Respiratory History: Asthma Endocrine Medical History: No Pertinent History Musculoskeletal History: No Pertinent History GI Medical History: Other History: No Pertinent History Psycho-Social History: No Pertinent History Male Reproductive Disorders: No Pertinent History Other Medical History: Current smoker, CODEY, Hx of SOB. - Past Surgical History Past Surgical History: Yes Neuro Surgical History: No Pertinent History Cardiac: No Pertinent History Respiratory: No Pertinent History Gastrointestinal: No Pertinent History Genitourinary: No Pertinent History Musculoskeletal: Other Male Surgical History: No Pertinent History Other Surgical History: carpal tunnel surgery, colonoscopy. upper GI Significant Family History: no pertinent family hx - Social History Smoking Status: Current every day smoker How long have you smoked: years Exposure to second hand smoke: Yes Drug Use: marijuana Patient Lives Alone: No - Social Determinants of Health Will the patient participate in the screening: Yes Do you worry about a steady place to live?: No Do you have any problems with any of the following?: No known problems In the past 12 months,have you had to go without utilities?: No Transportation Issues: No Has anyone in your support network made you feel unsafe?: No Have you or anyone in your house had to go without enough: No - Nursing Vital Signs Nursing Vital Signs: Initial Vital Signs Temperature 98.4 F 07/25/24 12:07 Pulse Rate 80 07/25/24 12:07 Respiratory Rate 18 07/25/24 12:07 Blood Pressure 119/99 07/25/24 12:07 O2 Sat by Pulse Oximetry 98 07/25/24 12:07 Pain Scale Pain Intensity 4 - Physical Exam General Appearance: no apparent distress, alert Eye Exam: PERRL/EOMI, eyes nml inspection Ears, Nose, Throat Exam: normal ENT inspection, pharynx normal, moist mucous membranes Neck Exam: normal inspection, non-tender, supple, full range of motion Respiratory Exam: normal breath sounds, lungs clear, No respiratory distress Cardiovascular Exam: regular rate/rhythm, normal heart sounds Gastrointestinal/Abdomen Exam: soft, No tenderness, No mass Back Exam: normal inspection, normal range of motion, No CVA tenderness, No vertebral tenderness Extremity Exam: normal inspection, normal range of motion, pelvis stable Neurologic Exam: alert, oriented x 3, cooperative, normal mood/affect, nml cerebellar function, sensation nml, No motor deficits Skin Exam: normal color, warm, dry SpO2: 98 - Course Nursing assessment & vital signs reviewed: Yes - CT Exams Abdomen/Pelvis CT Interpretation: Tele-radiologist Report Ordered Tests: Active Orders 24 hr Category Date Time Status IV Insertion STAT Care 07/25/24 12:21 Active ABDOMEN AND PELVIS W CONTRAST [CT] Stat Exams 07/25/24 12:22 Completed AMYLASE Stat Lab 07/25/24 12:36 Completed CBC W DIFF Stat Lab 07/25/24 12:36 Completed CMP Stat Lab 07/25/24 12:36 Completed LIPASE Stat Lab 07/25/24 12:36 Completed Medication Summary Generic Name Dose Route Start Last Admin Trade Name Rustam PRN Reason Stop Dose Admin Ciprofloxacin 500 mg 07/25/24 14:07 Ciprofloxacin 500 Mg Tablet PO 07/25/24 14:08 ONCE ONE Lab/Rad Data: Laboratory Result Diagrams 07/25/24 12:36 07/25/24 12:36 Laboratory Results 07/25/24 07/25/24 Range/Units 12:36 12:36 WBC 6.3 (4.23-9.07) x10^3/uL RBC 4.95 (4.63-6.08) x10^6/uL Hgb 14.1 (13.7-17.5) g/dL Hct 41.6 (40.1-51.0) % MCV 84.0 (79.0-92.2) fL MCH 28.5 (25.7-32.2) pg MCHC 33.9 (32.3-36.5) g/dL RDW 12.9 (11.6-14.4) % Plt Count 220 (163-337) x10^3/uL MPV 10.8 (9.4-12.4) fL Gran % 65.4 (34.0-67.9) % Immature Gran % (Auto) 0.3 (0.001-0.429) % Nucleat RBC Rel Count 0.0 (0.00-0.2) % Eos # (Auto) 0.12 (0.04-0.54) x10^3/uL Immature Gran # (Auto) 0.02 (0.001-0.031) x10^3u/L Absolute Lymphs (auto) 1.39 (1.32-3.57) x10^3/uL Absolute Monos (auto) 0.64 (0.30-0.82) x10^3/uL Absolute Nucleated RBC 0.00 (0.00-0.012) x10^3u/L Lymphocytes % 22.0 (21.8-53.1) % Monocytes % 10.1 (5.3-12.2) % Eosinophils % 1.9 (0.8-7.0) % Basophils % 0.3 (0.2-1.2) % Absolute Granulocytes 4.13 (1.78-5.38) x10^3/uL Basophils # 0.02 (0.01-0.08) x10^3/uL Sodium 136 (135-145) mmol/L Potassium 3.5 (3.5-5.1) mmol/L Chloride 103 (98-107) mmol/L Carbon Dioxide 25 (22-30) mmol/L Anion Gap 12.3 (5-15) MEQ/L BUN 9 (9-20) mg/dL Creatinine 0.98 (0.66-1.25) mg/dL Estimated GFR 96.3 ML/MIN Glucose 118 H (74-106) mg/dL Calcium 9.0 (8.4-10.2) mg/dL Total Bilirubin 0.50 (0.2-1.3) mg/dL AST 23 (17-59) U/L ALT 20 (0-50) U/L Alkaline Phosphatase 64 (38-126) U/L Serum Total Protein 7.2 (6.3-8.2) g/dL Albumin 4.1 (3.5-5.0) g/dL Amylase 39 (30-110) U/L Lipase 33 (23-300) U/L CLINICAL HISTORY: periumbilical pain COMPARISON: 06/13/2024 CT. TECHNIQUE: Contrast-enhanced CT of the abdomen and pelvis was performed, with t he following protocol: axial images with, and reconstructed coronal and sagittal images. 80cc Isovue 370 Intravenous contrast was administered. One of the following dose reduction techniques was utilized for this exam: Automated exposure control, adjustment of the mA and/or kV according to patient size, and use of iterative reconstruction. FINDINGS: Abdomen: Liver: Normal in size, shape, and density. No focal lesions, cysts, or masses were identified. Hepatic vasculature and biliary ducts are unremarkable. Gallbladder and Biliary System: The gallbladder is normal in size and shape. No wall thickening, pericholecystic fluid, or gallstones were identified. The common bile duct is normal in caliber without dilation. Pancreas: PatientID: [id number] Patient Name: KELLI REYNA Exam Date: 07/25/2024 Procedure: ABDOMEN AND PELVIS W CONTRAST page 1 of 3 Pancreatic head, body, and tail are visualized and appear normal in size and density. No pancreatic masses or calcifications were noted. The pancreatic duct is not dilated. Spleen: Normal in size, shape, and density. Tiny calcified splenic granuloma noted. No splenic lesions or masses were identified. Kidneys and Adrenal Glands: Both kidneys are normal in size, shape, and position. Cortical thickness is within normal limits. No renal calculi or hydronephrosis. Adrenal glands are unremarkable with no evidence of masses or hyperplasia. Appendix: Noted at right iliac fossa, retrocecum, with normal diameter. No signs of acute appendicitis. Pelvis: Urinary Bladder: Normal in contour and wall thickness. No intraluminal lesions identified. Prostate: Normal in size and contour. No focal lesions or masses identified. Seminal Vesicles: Normal in size and appearance. No abnormalities noted. Rectum and Sigmoid Colon: Normal wall thickness and no evidence of mass. Peritoneal and Retroperitoneal Structures: No free fluid or abnormal fluid collections were identified within the abdomen or pelvis. No lymphadenopathy was noted. Bowel: The visualized large bowel loops are normal in caliber and appearance, with mild submucosal fat proliferation from the level of the cecum to the descending colon. No evidence of bowel obstruction or wall thickening. Bones and Soft Tissues: Pelvic bones and soft tissues are unremarkable. No fractures or abnormal masses were identified. A few small nodules of the right lower lobe noted and small granuloma of left lower lobe noted. IMPRESSION: 1. Submucosal fat deposition/edema was noted at the large bowel wall from the cecum level to the descending colon level, these changes were not seen at previous CT. 2. Although it could be due to visceral obesity/insulin resistance or inflammato ry bowel diseases cannot be ruled out. Clinical correlation and further assessment are advised. 3. A tiny splenic granuloma. Stable. 4. A few small nodules of the right lower lobe noted and small granuloma of left lower lobe noted. CT chest advised. PatientID: [id number] Patient Name: KELLI REYNA Exam Date: - Progress Progress: improved, pain not gone completely Counseled pt/family regarding: lab results, diagnosis, need for follow-up, rad results Medical Desision Making - Independent Historian Additional History obtained from: Spouse - Diagnostic Testing Diagnostic test were ordered, analyzed, and reviewed by me: Yes Radiological Interpretation: Teleradiologist Report - Risk of complications Low Risk: Low risk of morbidity from additional dx testing or treatment - Departure Departure Disposition: Home Clinical Impression: Colitis, Ulcerative (chronic) pancolitis without complications Condition: Stable Critical Care Time: No Referrals: EL DHILLON NP [Primary Care Provider] - Follow up/PCP as directed Instructions: Ulcerative colitis in adults, Microscopic colitis Additional Instructions: Discharge/Care Plan KELLI REYNA was seen on 07/25/24 in the Emergency Room. The patient was counseled regarding Diagnosis,Lab results, Imaging studies, need for follow up and when to return to the Emergency Room. Prescriptions given: Discharge Note I have spoken with the patient and/or caregivers. I have explained the patient's condition, diagnosis and treatment plan based on the information available to me at this time. I have answered the patient's and/or caregiver's questions and addressed any concerns. The patient and/or caregivers have as good understanding of the patient's diagnosis, condition and treatment plan as can be expected at this point. The vital signs have been stable. The patient's condition is stable and appropriate for discharge from the emergency department. The patient will pursue further outpatient evaluation with the primary care physician or other designated or consulting physician as outlined in the discharge instructions. The patient and/or caregivers are agreeable to this plan of care and follow-up instructions have been explained in detail. The patient and/or caregivers have received these instruction. The patient/and or caregivers are aware that any significant change in condition or worsening of symptoms should prompt an immediate return to this or the closest emergency department or call 911. KELLI REYNA was seen on 07/25/24 n the Emergency Room. At that time you were treated for an emergent condition, during your visit Laboratory, Radiology and/or other procedures may have been ordered. It is very important that you follow-up with your Primary Care Physician EL DHILLON within the next 24-48 hours to review your Emergency Room visit and the final results of testing that was ordered. Some test results such as Urine Cultures, Blood Cultures, and other cultures if ordered will not be finalized for 24-48 hours. If you do not have a Primary Care Provider please call the medical records department at [phone] ext [phone] to obtain a copy of your results or you may sign into our patient portal to obtain these results by visiting us @ [email or web address] and completing the following steps: 1. Click on the Patient Portal link 2. Click the Patient Self Enrollment Link to complete the enrollment form and entering your 3. Once the enrollment form is completed you will receive an email with a temporary ID and password at the email address you provided. 4. Next choose a user name and password. Your user name must be at least 4 characters long and your password must be at least 4 characters long. 5. Choose a security question from the list and provide your answer to the question. If you already have signed into the Health Portal you may access your Health Care Information 11/03 by the following steps: 1. Login to our website @ [email or web address] 2. Enter your original user name and password. FAQS The [facility] Health Portal is an online tool that contains your Lab Results, Radiology Reports, Visit History, Discharge Instructions and Health Summary Lab and Radiology Results will not be available for 72 hours on the portal. The Portal is a secure site, passwords are encryted and URLs are re-written so they cannot be copied and pasted. You and authorized family members are the only ones who can access your Portal. Also there is a timeout feature that protects your information if you leave the Portal page open. If you have technical difficulty please use the Contact Us link on the page this will allow you to submit any questions you have regarding the Portal or you may contact the Medical Record Department at [phone] ext [phone]. Prescriptions: Ciprofloxacin [Cipro 500 MG] 500 mg PO BIDAC #20 tablet Metronidazole 500 mg [Flagyl 500 MG] 500 mg PO TID #21 tablet
[2024-07-25 12:37] LABS: Absolute Neutrophil Ct (ANC) 4.13 x10^3/uL (1.78-5.38); BASOPHIL % 0.3 % (0.2-1.2); Basophil (Absolute #) 0.02 x10^3/uL (0.01-0.08); Eosinophil % 1.9 % (0.8-7.0); Eosinophil (Absolute #) 0.12 x10^3/uL (0.04-0.54); Hematocrit 41.6 % (40.1-51.0); Hemoglobin 14.1 g/dL (13.7-17.5); IMMATURE GRAN # 0.02 x10^3u/L (0.001-0.031); IMMATURE GRAN % 0.3 % (0.001-0.429); Lymphocyte (Absolute #) 1.39 x10^3/uL (1.32-3.57); Mean Corpuscular Hemoglobin 28.5 pg (25.7-32.2); Mean Corpuscular Hgb Concent. 33.9 g/dL (32.3-36.5); Mean Platelet Volume 10.8 fL (9.4-12.4); Monocyte (Absolute #) 0.64 x10^3/uL (0.30-0.82); Monocytes % 10.1 % (5.3-12.2); Neutrophil % 65.4 % (34.0-67.9); Platelet Count 220 x10^3/uL (163-337); Red Blood Count 4.95 x10^6/uL (4.63-6.08); Red Cell Distribution Width 12.9 % (11.6-14.4); White Blood Count 6.3 x10^3/uL (4.23-9.07)
[2024-07-25 12:51] LABS: ALBUMIN 4.1 g/dL (3.5-5.0); ANION GAP 12.3 MEQ/L (5-15); BILIRUBIN,TOTAL 0.5 mg/dL (0.2-1.3); Creatinine 1 0.98 mg/dL (0.66-1.25); EST GLOMERULAR FILTRATION RATE 96.3 ML/MIN; Potassium 3.5 mmol/L (3.5-5.1); Total Protein 7.2 g/dL (6.3-8.2)
[2024-07-25 13:57] VITALS: PULSE 70
--- NOTE | 2024-07-25 13:57 | XRAY ---
CLINICAL HISTORY: periumbilical pain COMPARISON: 06/13/2024 CT. TECHNIQUE: Contrast-enhanced CT of the abdomen and pelvis was performed, with the following protocol: axial images with, and reconstructed coronal and sagittal images. 80cc Isovue 370 Intravenous contrast was administered. One of the following dose reduction techniques was utilized for this exam: Automated exposure control, adjustment of the mA and/or kV according to patient size, and use of iterative reconstruction. FINDINGS: Abdomen: Liver: Normal in size, shape, and density. No focal lesions, cysts, or masses were identified. Hepatic vasculature and biliary ducts are unremarkable. Gallbladder and Biliary System: The gallbladder is normal in size and shape. No wall thickening, pericholecystic fluid, or gallstones were identified. The common bile duct is normal in caliber without dilation. Pancreas: Pancreatic head, body, and tail are visualized and appear normal in size and density. No pancreatic masses or calcifications were noted. The pancreatic duct is not dilated. Spleen: Normal in size, shape, and density. Tiny calcified splenic granuloma noted. No splenic lesions or masses were identified. Kidneys and Adrenal Glands: Both kidneys are normal in size, shape, and position. Cortical thickness is within normal limits. No renal calculi or hydronephrosis. Adrenal glands are unremarkable with no evidence of masses or hyperplasia. Appendix: Noted at right iliac fossa, retrocecum, with normal diameter. No signs of acute appendicitis. Pelvis: Urinary Bladder: Normal in contour and wall thickness. No intraluminal lesions identified. Prostate: Normal in size and contour. No focal lesions or masses identified. Seminal Vesicles: Normal in size and appearance. No abnormalities noted. Rectum and Sigmoid Colon: Normal wall thickness and no evidence of mass. Peritoneal and Retroperitoneal Structures: No free fluid or abnormal fluid collections were identified within the abdomen or pelvis. No lymphadenopathy was noted. Bowel: The visualized large bowel loops are normal in caliber and appearance, with mild submucosal fat proliferation from the level of the cecum to the descending colon. No evidence of bowel obstruction or wall thickening. Bones and Soft Tissues: Pelvic bones and soft tissues are unremarkable. No fractures or abnormal masses were identified. A few small nodules of the right lower lobe noted and small granuloma of left lower lobe noted. IMPRESSION: 1. Submucosal fat deposition/edema was noted at the large bowel wall from the cecum level to the descending colon level, these changes were not seen at previous CT. 2. Although it could be due to visceral obesity/insulin resistance or inflammatory bowel diseases cannot be ruled out. Clinical correlation and further assessment are advised. 3. A tiny splenic granuloma. Stable. 4. A few small nodules of the right lower lobe noted and small granuloma of left lower lobe noted. CT chest advised. Electronically Signed by: Homero Richards MD. (07/25/2024 13:53:52 EST)
[2024-07-25 14:01] VITALS: O2SAT 98
[2024-07-25] MEDS ORDERED: Cipro 500 MG ONE (14:17)
[2024-07-25] MEDS ORDERED: Flagyl 500 MG ONE (14:17)
[2024-07-25] MEDS: Flagyl 500 MG PO ONE (14:21)
[2024-07-25] MEDS: Cipro 500 MG PO ONE (14:21)
[2024-07-25 14:48] VITALS: BP 96/75
== END 2024-07-25 14:48 | disposition home or self-care (01) ==
LOC: ED 12:01
DX: K51.00 Ulcerative (chronic) pancolitis without complications (principal); R10.33 Periumbilical pain
CPT/HCPCS: 36415; 74177; 80053; 82150; 83690; 85025; 99284; A9270-GY